=== PATIENT | female | born 1965 | race Caucasian/White ===

== ENCOUNTER → 2021-05-01 10:43 | Outpatient (CLI) | payer OTHER, SELFPAY ==
[2021-05-01 13:03] LABS: Cholesterol 159 mg/dL (200); Glucose 100 mg/dL (74-106); High Density Lipoprotein 52 mg/dL; Triglycerides 110 mg/dL; Very Low Density Lipoprotein 22 mg/dL (5-40)
== END ==
PROVIDERS: Referring Provider Psychiatry & Neurology Psychiatry; Visit Provider Psychiatry & Neurology Psychiatry
DX: E88.81 Metabolic syndrome and other insulin resistance (principal); Z79.899 Other long term (current) drug therapy
CPT/HCPCS: 36415; 80061; 82947; 83036

== ENCOUNTER 2023-01-08 21:51 | Emergency (ER) | payer OTHER, SELFPAY ==
[2023-01-08 21:52] VITALS: BP 161/66; PULSE 64; RESP 18; TEMP 36.1; O2SAT 100; BMI 40.8
--- NOTE | 2023-01-08 22:33 | ED.VIS.FALL ---
HPI HPI - Fall History of Present Illness Chief Complaint: Fall Informant: patient Occured/Mechanism Occurred: Today Mechanism/Context: Yes same level fall Pain/Injury Location: Left elbow, left arm, right shoulder, head, neck, and upper back Pain Location: head, neck, back and upper extremity Quality of Pain: Burning and Stabbing Worsened by: Movement Relieved by: Nothing Associated Symptoms Associated Symptoms: Negative for Parasthesias, Weakness, Loss of function, Inability to ambulate, Loss of consciousness or Amnesia Narrative Narrative: Patient presents after a fall that occurred earlier today. Patient states she was walking up a ramp and the ramp started to tip over. Patient states she fell backwards. Patient states she injured her left elbow, left arm, upper back, and right shoulder. Patient thinks she hit her head. Patient denies any loss of consciousness. Patient states her pain is worse with movement. Patient describes her pain as stabbing. Patient states she has burning pain in her left elbow. Patient denies any paresthesias or weakness. Patient denies any other injuries. PFSH PFSH Medical History (Updated 01/08/23 @ 23:[address] Phong Coffman DO) Anxiety Depression Home Medications bupropion HCl 300 mg 24 hr tablet, extended release 300 mg PO DAILY 01/08/23 [History Last Taken Unknown] hydrocodone-acetaminophen 5-325mg 5mg-325mg 1 tab PO Q6H PRN PRN Pain 3 days #10 TABLETS 01/08/23 [Rx Last Taken Unknown] propranolol 10 mg tablet 10 mg PO DAILY 01/08/23 [History Last Taken Unknown] quetiapine 50 mg tablet 50 mg PO QHS 01/08/23 [History Last Taken Unknown] sertraline 100 mg tablet 200 mg PO Q24H 01/08/23 [History Last Taken Unknown] Allergy/AdvReac Type Severity Reaction Status Date / Time No Known Allergies Allergy Verified 01/08/23 21:53 Surgical History (Updated 01/08/23 @ 22:[address] Phong Coffman DO) Hx of appendectomy Social History Smoking Status: Never smoker ROS ROS ED Constitutional Constitutional ED: Denies chills or fever(s) Eyes Eyes: Denies blurry vision or change in vision ENT ENT ED: Denies rhinorrhea or sore throat Cardiovascular Cardiovascular: Denies chest pain or palpitations Respiratory/Chest Respiratory/Chest: Denies cough or dyspnea Gastrointestinal Gastrointestinal: Denies nausea or vomiting Genitourinary Genitourinary ED: Denies dysuria or hematuria Musculoskeletal Musculoskeletal: Reports back pain and neck pain Integumentary Denies abscess or rash Neurologic Neurologic: Reports headache(s); Denies weakness Allergic/Immunologic Allergic/Immunologic ED: Denies mouth swelling or urticaria EXAM Physical Exam Const Vital Signs: 01/08/23 21:52 Temperature 97 F L Temperature Source Temporal Pulse Rate 64 Respiratory Rate 18 Blood Pressure 161/66 H Blood Pressure Mean 97 Pulse Ox 100 Oxygen Delivery Method Room Air Positive well nourished and well developed General Appearance ED: well developed HEENT Reports normocephalic Neck General: tenderness Chest Wall palpation of chest normal GI non-tender Palpation: soft Back/Spine Cervical Spine: cervical spine tenderness Thoracic Spine / Upper Back: thoracic spinal tenderness Extremity Extremity Narrative: There is tenderness over the left elbow and upper arm. There is tenderness over the right shoulder. Range of motion is limited in all motions of the right shoulder, left elbow, and left shoulder secondary to pain. There is no obvious deformity noted. Radial pulses are equal bilaterally. Sensation was intact to light touch in the radial, median, ulnar areas bilaterally. Strength is 5/5 in the radial, median, and ulnar areas bilaterally. Neuro oriented x3, CN's II-XII intact bilaterally, moves all extremities, no focal motor deficits and no sensory deficits noted [place] Coma Scale: document GCS findings Spontaneous Obeys Commands Oriented 15 Sensorium / Orientation: alert Motor Exam: strength 5/5 throughout MDM MDM MDM Narrative Medical decision making narrative: Differential diagnosis includes closed head injury, cervical spine fracture, cervical muscle strain, thoracic strain, shoulder dislocation, elbow fracture, and contusions. CT scan of the cervical spine will be obtained to assess for cervical spine fracture. CT scan of the brain will be obtained to assess for intracranial bleeding and head injury. X-ray of the right shoulder will be obtained to assess for fracture dislocation. X-ray of the left elbow and left humerus will be obtained to assess for fracture and dislocation. Radiography Diagnostic Testing: Clinical Impression(s) from Imaging Studies Brain CT 01/08/23 22:40 IMPRESSION: No acute intracranial abnormality. Electronically Signed: Emeterio Sexton MD at 23:25 EDT , Cervical Spine CT 01/08/23 22:40 IMPRESSION: 1. No acute fracture or subluxation. 2. Spondylosis as described with spinal and neural foraminal narrowing. Electronically Signed: Emeterio Sexton MD at 23:33 EDT Reading Location ID and State: [facility] / [place] Tel , Service support , Elbow X-Ray 01/08/23 23:10 IMPRESSION: Acute intra-articular fracture of the proximal radial head. Elbow joint effusion. Electronically Signed: Emeterio Sexton MD at 23:43 EDT Reading Location ID and State: [facility] / [place] Tel , Service support , Humerus X-Ray 01/08/23 23:10 IMPRESSION: Intact left humerus. Intra-articular fracture of the proximal radial head. Electronically Signed: Emeterio Sexton MD at 23:44 EDT , Shoulder X-Ray 01/08/23 23:10 IMPRESSION: Intact right shoulder. Electronically Signed: Emeterio Sexton MD at 23:42 EDT , X-rays of the right shoulder were obtained. There are 4 views. On my independent interpretation, there is no acute fracture or dislocation. There are some mild degenerative changes noted. Radiologist also interpreted the x-rays and agrees. X-rays of the left humerus were obtained. There are 4 views. On my independent interpretation, there is no fracture of the humerus bone. There is a radial head fracture. There is a joint effusion noted. Radiologist also interpreted the x-rays and agrees. X-rays of the left elbow were obtained. There are 3 views. On my independent interpretation, there is a fracture of the radial head. There is a joint effusion noted. There is no soft tissue swelling noted. Radiologist also interpreted the x-rays and agrees. CT scan of the cervical spine was obtained. There is no acute fracture or spondylolisthesis. There are degenerative changes noted. This was interpreted by the radiologist and was also independently reviewed by myself. CT scan of the brain was obtained. There is no acute intracranial abnormality. This was interpreted by the radiologist and was also independently reviewed by myself. Treatment and Re-Evaluation Narrative: The patient was given Belcher here. Patient was given a prescription for a short course of Belcher. Patient was given a sling. Patient was instructed to use ice to the area. Patient was instructed to follow-up with her primary care physician in 5 to 7 days. Patient understood and was agreeable with the plan. All questions were answered. Discharge Plan Triage Chief Complaint: Fall ED Provider: Phong Coffman Dx/Rx/DC Orders Clinical Impression: Acute cervical myofascial strain, Fall, Closed fracture of head of left radius Instructions: ED Elbow Fracture Prescriptions: New hydrocodone-acetaminophen [hydrocodone-acetaminophen] 5-325 mg tablet 1 tab PO Q6H PRN PRN (Reason: Pain) 3 Days Qty: 10 0RF No Action propranolol 10 mg tablet 10 mg PO DAILY Patient Comments: TAKE ONE TABLET BY MOUTH EVERY DAY sertraline 100 mg tablet 200 mg PO Q24H Patient Comments: TAKE TWO TABLETS BY MOUTH EVERY DAY quetiapine 50 mg tablet 50 mg PO QHS Patient Comments: TAKE ONE TABLET BY MOUTH EVERY DAY bupropion HCl 300 mg tablet extended release 24 hr 300 mg PO DAILY Patient Comments: TAKE ONE TABLET BY MOUTH EVERY MORNING Primary Care Provider: Care Physician,No Primary Referrals: Tal Snowden DO [Med Staff - Active Staff] - 5-7 Days Care Physician,No Primary [Primary Care Provider] - Disposition Disposition: Home, Self Care
--- NOTE | 2023-01-08 22:40 | CT_ITS ---
EXAM: CT CERVICAL SPINE WITHOUT INTRAVENOUS CONTRAST CLINICAL INDICATION: Injury/Pain TECHNIQUE: Helically acquired images were obtained of the cervical spine without intravenous contrast. 2D reformatted images were reviewed. This CT exam was performed using one or more of the following dose reduction techniques: automated exposure control, adjustment of the mA and/or kV according to patient size, and/or use of iterative reconstruction technique. COMPARISON: No relevant prior studies available. FINDINGS: VERTEBRAE: No acute fracture or subluxation. Disc space narrowing and prominent vertebral body hypertrophy noted at C4-5, C5-6 and C6-7. Prominent posterior disc osteophyte complex at C5-6 results and mild to moderate spinal stenosis. Bilateral C5-6 and C6-7 neural foraminal narrowing related to uncinate joint hypertrophy. DISCS/SPINAL CANAL/NEURAL FORAMINA: See above. SOFT TISSUES: Normal. No prevertebral soft tissue swelling. LYMPH NODES: Normal. No cervical adenopathy. LUNG APICES: Unremarkable as visualized. CT/Spine Cervical without Contras IMPRESSION: 1. No acute fracture or subluxation. 2. Spondylosis as described with spinal and neural foraminal narrowing. Electronically Signed: Emeterio Sexton MD at 23:33 EDT ,
--- NOTE | 2023-01-08 22:40 | CT_ITS ---
EXAM: CT HEAD WITHOUT INTRAVENOUS CONTRAST CLINICAL INDICATION: Injury/Pain TECHNIQUE: Multiple axial images were obtained of the head without intravenous contrast. This CT exam was performed using one or more of the following dose reduction techniques: automated exposure control, adjustment of the mA and/or kV according to patient size, and/or use of iterative reconstruction technique. COMPARISON: No relevant prior studies available. FINDINGS: BRAIN AND EXTRA-AXIAL SPACES: Normal. No intra- or extra-axial hemorrhage. No acute infarct. No intracranial mass or mass effect. There is preservation of the wang/white matter interface. Posterior fossa structures are unremarkable. Ventricles are appropriate for age. No hydrocephalus. Basal cisterns are patent. BONES/JOINTS: No suspicious lytic or blastic abnormality. SINUSES: No acute sinusitis. MASTOID AIR CELLS: Normal. Clear. CT/Brain/Head without Contrast IMPRESSION: No acute intracranial abnormality. Electronically Signed: Emeterio Sexton MD at 23:25 EDT ,
[2023-01-08] MEDS: HYDROcodone Bitartrate/Apap 5/325 Tablet PO (22:59)
--- NOTE | 2023-01-08 23:10 | RAD_ITS ---
EXAM: XR LEFT HUMERUS, 2 OR MORE VIEWS CLINICAL INDICATION: Injury/Pain TECHNIQUE: Frontal and lateral views of the left humerus. COMPARISON: No relevant prior studies available. FINDINGS: BONES/JOINTS: Humerus is intact. Fracture involving the proximal radial head is again seen. SOFT TISSUES: Normal. No soft tissue swelling or gas. No radiopaque foreign body. RAD/Humerus min 2 Views IMPRESSION: Intact left humerus. Intra-articular fracture of the proximal radial head. Electronically Signed: Emeterio Sexton MD at 23:44 EDT ,
--- NOTE | 2023-01-08 23:10 | RAD_ITS ---
EXAM: XR LEFT ELBOW COMPLETE, 3 OR MORE VIEWS CLINICAL INDICATION: Injury/Pain TECHNIQUE: Frontal, lateral and oblique views of the left elbow. COMPARISON: No relevant prior studies available. FINDINGS: BONES/JOINTS: An acute intra-articular fracture of the proximal radial head noted with 1.5 mm of displacement. No subluxation. Joint effusion displaces the anterior and posterior fat pads. SOFT TISSUES: Normal. No soft tissue swelling or gas. No radiopaque foreign body. RAD/Elbow min 3 Views IMPRESSION: Acute intra-articular fracture of the proximal radial head. Elbow joint effusion. Electronically Signed: Emeterio Sexton MD at 23:43 EDT ,
--- NOTE | 2023-01-08 23:10 | RAD_ITS ---
EXAM: XR RIGHT SHOULDER COMPLETE, 2 OR MORE VIEWS CLINICAL INDICATION: Injury/Pain TECHNIQUE: Two or more views of the right shoulder. COMPARISON: No relevant prior studies available. FINDINGS: BONES/JOINTS: No acute abnormality. SOFT TISSUES: Normal. No soft tissue swelling or gas. No radiopaque foreign body. RAD/Shoulder min 2 Views IMPRESSION: Intact right shoulder. Electronically Signed: Emeterio Sexton MD at 23:42 EDT ,
[2023-01-08 23:51] VITALS: RESP 18
== END 2023-01-09 00:19 | disposition home or self-care (01) ==
PROVIDERS: Emergency Provider Emergency Medicine; Visit Provider Emergency Medicine
DX: S16.1XXA Strain of muscle, fascia and tendon at neck level, initial encounter (principal); S52.302A Unspecified fracture of shaft of left radius, initial encounter for closed fracture; F32.A Depression, unspecified; F41.9 Anxiety disorder, unspecified; W18.30XA Fall on same level, unspecified, initial encounter; Z79.899 Other long term (current) drug therapy
CPT/HCPCS: 70450; 72125; 73030; 73060; 73080; 99283

== ENCOUNTER → 2023-02-15 | Outpatient (CLI) | payer OTHER, SELFPAY ==
--- NOTE | 2023-02-15 13:05 | MRI_ITS ---
STUDY: MRI LEFT SHOULDER REASON FOR EXAM: Female, 57 years old. Pain, rule out rotator cuff tear TECHNIQUE: Standardized fat and water weighted pulse sequences were obtained in all 3 orthogonal planes. COMPARISON: Left humerus radiographs dated 01/08/2023. FINDINGS: There is supraspinatus tendinosis with a full-thickness tear of the anterior distal supraspinatus tendon, overall measuring 8 mm in length (coronal T2 series 5 images 7-8) and 7 mm in width (sagittal T2 series 6 images 17-18). There is infraspinatus and subscapularis tendinosis. Normal teres minor tendon. There is minimal atrophy and fatty infiltration of the supraspinatus and infraspinatus muscles. Normal subscapularis muscle. Normal teres minor muscle. There is a tiny glenohumeral joint effusion with fluid communicating into the subacromial-subdeltoid bursa. Normal humeral head and visualized proximal humerus. Normal biceps labral complex. Normal intracapsular long biceps tendon. Normal labrum. Normal capsulo-ligamentous complex. Normal rotator interval. There is hypertrophic acromioclavicular arthrosis, with inferior osteophyte formation, with minimal effacement of the supraspinatus myotendinous junction. There is a Type II morphology (curved), with a neutral orientation. Normal visualized coracohumeral and coracoacromial ligaments. Normal quadrilateral space. Normal axillary space. Normal deltoid muscle. Normal trapezius muscle. MRI/Upper Ext Joint Only(Routine) IMPRESSION: Supraspinatus tendinosis with a 8 x 7 mm full-thickness tear of the anterior distal supraspinatus tendon. Infraspinatus and subscapularis tendinosis. Minimal atrophy and fatty infiltration of the supraspinatus and infraspinatus muscles. Hypertrophic acromioclavicular arthrosis, with inferior osteophyte formation, with minimal effacement of the supraspinatus myotendinous junction. Tiny glenohumeral joint effusion with fluid communicating into the subacromial-subdeltoid bursa. Electronically Signed: Juan Hawthorne MD at 14:18 EDT ,
== END | disposition home or self-care (01) ==
PROVIDERS: Referring Provider Orthopaedic Surgery Sports Medicine; Visit Provider Orthopaedic Surgery Sports Medicine
DX: M25.812 Other specified joint disorders, left shoulder (principal)
CPT/HCPCS: 73221

== ENCOUNTER → 2023-04-24 | Outpatient (CLI) | payer OTHER, SELFPAY ==
[2023-04-24 12:18] LABS: Absolute Lymphocyte Count 2.42 X10^3/uL (0.83-4.51); Absolute Neutrophil Count 4.6 X10^3/uL (2.0-7.7); Basophil# 0.04 X10^3/uL; Basophil% 0.5 % (0-1); Eosinophil# 0.29 X10^3/uL; Eosinophils% 3.7 % (0-5); Hematocrit 39.5 % (37-47); Hemoglobin 12.5 g/dL (12.0-15.0); Lymphocyte # 2.42 X10^3/ul (0.83-4.51); Lymphocyte % 30.6 % (19-41); Mean Corp Hgb Conc 31.6 g/dL (32-36); Mean Corpuscular Hgb 28.6 pg (27.0-32.0); Mean Corpuscular Volume 90.4 fL (81-99); Mean Platelet Vol. 9.2 fl (6.2-12.0); Monocyte# 0.54 X10^3/uL; Monocyte% 6.8 % (0-10); NRBC Flagged by Analyzer 0 % (0-5); Neutrophil # 4.55 X10^3/uL (2.7-7.7); Neutrophil % 57.4 % (47-70); Platelet Count 219 K/mm3 (150-450); RBC Distribution Width CV 14.2 % (11.6-14.6); RBC Distribution Width SD 46.5 fl (35.1-43.9); Red Blood Count 4.37 M/mm3 (4.2-5.4); White Blood Count 7.9 K/mm3 (4.4-11.0)
[2023-04-24 13:18] LABS: ALB/GLOB Ratio 0.9 RATIO (0.9-2.4); AST(SGOT) 17 U/L (15-37); Alanine Aminotransfer ALT/SGPT 27 U/L (13-56); Albumin, Serum 3.6 g/dL (3.2-5.0); Alkaline Phosphatase 90 U/L (45-117); Anion Gap 6 (5-15); BUN 17 mg/dL (7-18); BUN/Creat Ratio 23.1 RATIO (10-20); Calcium,Total 9.8 mg/dL (8.5-10.1); Chloride 108 mmol/L (98-107); Cholesterol 154 mg/dL (200); Creatinine, Serum 0.74 mg/dL (0.55-1.02); EST Glomerular Filtration Rate 86 mL/min (>60); Est Glom Filt Rate - Afr Amer 104 mL/min (>60); Glucose 113 mg/dL (74-106); High Density Lipoprotein 55 mg/dL; Potassium 4.1 mmol/L (3.5-5.1); Protein, Total 7.6 g/dL (6.4-8.2); Sodium Level 141 mmol/L (136-145); Triglycerides 123 mg/dL; Very Low Density Lipoprotein 25 mg/dL (5-40)
[2023-04-24 15:21] LABS: Hemoglobin A1c 6.2 % (3.8-5.6)
== END | disposition home or self-care (01) ==
LOC: BIMLAB 10:54
PROVIDERS: Referring Provider Physician Assistant; Visit Provider Physician Assistant
DX: Z00.00 Encounter for general adult medical examination without abnormal findings (principal); R73.03 Prediabetes
CPT/HCPCS: 36415; 80053; 80061; 83036; 85025

== ENCOUNTER 2023-05-07 08:00 | Day surgery (SDC) | payer SELFPAY, OTHER ==
[2023-05-07] VITALS (7 sets, daily range): BP systolic 113–135; BP diastolic 48–68; PULSE 51–95; RESP 12–16; TEMP 36–36.1; O2SAT 72–100; BMI 40.4
[2023-05-07] MEDS: Lactated Ringers 1,000 ML 15 ML IV (08:37)
--- NOTE | 2023-05-07 10:07 | HP.PCM_ITS ---
HPI - General HPI Narrative RYAN PEDRAZA, is a 57 F who presents for left shoulder arthroscopy, subacromial decompression rotator cuff repair. no changes to h and p. ok to proceed. Discussed post op. Left shoulder marked. Plan for block. RAB and narcotic counselling. No further concerns. MR#: [id number] Acct: [id number] Name: RYAN PEDRAZA Rep #: [id number] : 1965 Provider: Dr. Vijay Black MD Age/Sex: 57/F [place] [facility] [place] Status: Signed Intake Vital Signs 01/08/2321:52 Height 5 ft 9 in Weight: 277 lb BMI 40.8 BP 161/66 H Respiration 18 Pulse 64 Temp 97 F L Temp Source Temporal Pulse Oximetry (%) 100 Intake Visit Reasons: LEFT ELBOW Is patient in pain?: Yes Allergies No Known Allergies Allergy (Verified 02/21/23 10:32) Medications bupropion HCl 300 mg 24 hr tablet, extended release 300 mg PO DAILY 01/08/23 [History Confirmed 03/21/23] propranolol 10 mg tablet 10 mg PO DAILY 01/08/23 [History Confirmed 03/21/23] quetiapine 50 mg tablet 50 mg PO QHS 01/08/23 [History Confirmed 03/21/23] sertraline 100 mg tablet 200 mg PO Q24H 01/08/23 [History Confirmed 03/21/23] calcium carbonate 500 mg calcium (1,250 mg) chewable tablet (Calcium 500) 500 mg PO DAILY 01/16/23 [History Confirmed 03/21/23] lactobacillus combo no.11 15 billion cell sprinkle capsule (Probiotic) 1 cap PO DAILY 01/16/23 [History Confirmed 03/21/23] omeprazole 20 mg capsule,delayed release 20 mg PO DAILY 01/16/23 [History Confirmed 03/21/23] PFSH Medical History Anxiety Depression Impingement of left shoulder Left rotator cuff tear Surgical History Hx of appendectomy Social History household members: spouse Smoking Status: Never smoker alcohol intake: never HPI LEFT ELBOW Details: This documentation accurately reflects the service provided and the decisions made by me, Dr. Vijay Black MD 03/21/23 1022. Part of today?s visit was documented by [ ], acting as scribe. RYAN PEDRAZA is a 57 year old F here today for 4 wks FU L shoulder small rotator cuff tear. Patient is not interested in cortisone injections. The patient has been doing physical therapy for the last 4-week only minor amounts of improvement still having anterior lateral based shoulder pain worse with over head lifting very hard to do laundry. The patient is here with her . Ortho Exam General General: Yes no acute distress Neurologic: Yes alert and Yes oriented x3 Psychologic: Yes reasonable and appropriate Left Shoulder Skin/Wound: Yes CDI, No ecchymosis, No erythema and No swelling Testing: Yes Hawkin's, Yes Neer's, No Speed's, No TTP Biceps, No TTP AC Joint, No Drop Arm, Yes AROM-External Rotation at side 0-60, Yes empty can, No Chester, No scapular winging and Yes belly press normal SHOULDER: normal motor and sens to axillary N, MRU and AIN/PIN. Hand warm well perfused normal radial pulse strength fe 4+, er 4+ active fe 150, passive 165, er 45. Coding Level of Care Code Off vis,est,level 4 Diagnoses Left rotator cuff tear M75.102 Impingement of left shoulder M25.812 Assessment and Plan Assessment and Plan (1) Left rotator cuff tear: Status: Acute (2) Impingement of left shoulder: Status: Acute Plan: RYAN PEDRAZA is a 57 year old F here today for 4 wks FU L shoulder small rotator cuff tear. Patient had minimal improvement with physical therapy does not want to try cortisone injection or other forms of nonoperative management although I spent extensive time counseling the patient and their significant other on these things they can try. The patient wishes to go ahead with shoulder surgery. In my hands that would be in the form of left shoulder arthroscopy, subacromial decompression rotator cuff repair. The patient wishes to proceed with that I discussed the diagnosis prognosis as well as aftercare after surgery 2 weeks in a sling 3 months of physical therapy before going back to any sort of significant heavy lifting. The patient understands wishes to proceed and I will also get a preoperative clearance as the patient has not seen her family doctor in quite some time and states that they are prediabetic - risk factor increases infection and other risks / complications like healing. They understood no further questions or concerns and also I have asked Dr. Burrell spine surgeon to evaluate the patient's neck as apparently they had C-spine MRI in the past and complaining about neck pain today. Pros and cons risks and benefits were discussed with the patient including but not limited to infection, pain, stiffness, bleeding, damage to surrounding structures, neurovascular injury, recurrence or retear, failure or wear of hardware or fixation, instability, fracture, deep vein thrombosis and pulmonary embolism, anesthetic risks, , patient dissatisfaction, need for further surgery and other risks. Patient understood and wished to proceed with surgery, and signed the informed consent documentation. [facility] Medical History (Updated 04/30/23 @ 10:14 by Marybel Barker) Anemia Anxiety Back problem Bone fracture Carpal tunnel syndrome Chronic bronchiolitis Depression Diabetes Head ache Heartburn Hives Hormone deficiency Impingement of left shoulder Left rotator cuff tear Seasonal allergies Vision problems Wears glasses Home Medications bupropion HCl 300 mg 24 hr tablet, extended release 300 mg PO DAILY 01/08/23 [History Last Taken Unknown] propranolol 10 mg tablet 10 mg PO DAILY 01/08/23 [History Last Taken 05/07/23] quetiapine 50 mg tablet 50 mg PO QHS 01/08/23 [History Last Taken Unknown] sertraline 100 mg tablet 200 mg PO Q24H 01/08/23 [History Last Taken Unknown] calcium carbonate 500 mg calcium (1,250 mg) chewable tablet (Calcium 500) 500 mg PO DAILY 01/16/23 [History Last Taken Unknown] brain vitality 2 tab PO BID 04/24/23 [History Last Taken Unknown] curalin 1 tab PO DAILY 04/24/23 [History Last Taken Unknown] lysene 1 tab PO BID 04/24/23 [History Last Taken Unknown] nexalin 1 tab PO QODAY 04/24/23 [History Last Taken Unknown] Allergy/AdvReac Type Severity Reaction Status Date / Time No Known Allergies Allergy Verified 05/07/23 08:30 Family History (Updated 04/24/23 @ 09:17 by Aleksandra Rose MA) Mother Anxiety Depression Father Cancer melanoma Diabetes Surgical History (Updated 04/24/23 @ 09:15 by Aleksandra Rose MA) H/O laparoscopy History of adenoidectomy Hx of appendectomy Hx of tonsillectomy Social History (Updated 04/24/23 @ 09:16 by Aleksandra Rose MA) household members: spouse Smoking Status: Never smoker alcohol intake: never substance use type: does not use Vital Signs Vital Signs Vital Signs: 05/07/23 08:32 05/07/23 08:32 Temperature 96.9 F L Temperature Source Temporal Pulse Rate 54 L Respiratory Rate 16 Respiratory Pattern Normal Blood Pressure 135/66 H Blood Pressure Mean 89 Blood Pressure Source Monitor Blood Pressure Position Semi-Fowlers Blood Pressure Location Left Arm Pulse Ox 98 Oxygen Delivery Method Room Air Weight Weight: 281 lb 12.012 oz Body Mass Index (BMI) 40.4
[2023-05-07] MEDS: Cefazolin 3 GM in 0.9% Normal Saline (100mL Bag) 100 ML IV (10:16)
[2023-05-07] MEDS: Epinephrine (1 mg/ml) 1 MG/ML VIAL (10:54)
--- NOTE | 2023-05-07 11:53 | PCM.OPRPT ---
Problems Associated Problem List Diagnoses (1) Impingement of left shoulder: (2) Left rotator cuff tear: Report of Operation Date of Procedure: 05/07/23 Pre-Operative Diagnosis: Left shoulder rotator cuff tear and impingement syndrome Post-Operative Diagnosis: Same Surgery/Procedure Performed:: Left shoulder arthroscopy subacromial decompression rotator cuff repair Surgeon: Vijay Black Type of Anesthesia: Block,Regional and General Anesthesiologist: Phong Alva Estimated Blood Loss (mL): 50 Description of Procedure: Patient brought to the operating room theater. Placed supine on the table. General anesthesia induced. 3 g IV Ancef administered prior to the start of the case. Patient transferred left side up lateral decubitus all bony prominences padded SCDs on the leg beanbag positioner and axillary roll. Upper extremity prepped and draped in the usual sterile fashion with chlorhexidine-based prep solution allowing over 3 minutes drying time prior to draping. 45 degrees of abduction with 10 pounds of inline traction set up was used. Preoperative timeout performed to confirm the site patient and the surgery. Began by inserting the arthroscope into the intra-articular portion of the shoulder. Did a diagnostic arthroscopy. Made anterior portal through rotator interval. Slight fraying on labrum. Cartilage on the glenoid and humeral head appeared normal, slight grade 1 changes both sides. Subscapularis normal. Biceps tendinosis and slight synovitis but no tears. No loose bodies. Axillary recess was normal. There is an obvious full-thickness partial width at anterior margin tear of the supraspinatus. Rest of tendon normal. Next put arthroscope into subacromial space. I did a subacromial decompression for flat margins using a corey instrument. Moderate synovitis. I assessed the mobility of the tear. This is mobile in all planes. Used 7x7mm cannulas for 2 accessory portals. I also cleared away any remaining soft tissue. Used power pick and shaver to stimulate healing at the repair site on greater tuberosity. The tear was about 1 cm x 1 cm crescent shaped tear with delamination of the anterior leaflet. I used the Arthrex fiber tape suture in an inverted horizontal mattress fashion to aid with [id number] tension as well as passed the limb of the anterior suture through both the leaflets of the delaminated portion. In addition I was able to capture the delaminated portion both layers with a fiber link suture that I placed in the middle of the inverted horizontal mattress. I then assessed where to place my anchor used the tap down to the second line and all 3 suture limbs into an Arthrex bio composite 4.75 mm swivel lock anchor and placed this at the lateral margin of the tuberosity getting a good repair. Sutures were cut short and stay sutures removed. Arthroscopic pictures taken and saved onto the system repair was solid. Case was terminated arthroscopy pictures taken and saved throughout the case onto the system. Wounds thoroughly irrigated. Portals closed with 3-0 Monocryl suture. Skin cleaned with wet dry dressing 30 cc of quarter percent bupivacaine. Steri-Strips Adaptic 4 x 4 gauze ABD dressing with cloth tape and a sling for the upper extremity. Patient woken up from a general anesthetic transferred off the operating table and taken to postanesthetic care unit in stable condition. All sponge needle instrument counts were correct. cpt 82904 Complications none Admit VTE Documentation VTE Present on Admission: No VTE Mechan Device Prophylaxis: SCD's VTE Pharm Prophylaxis ordered?: No Reason prophylaxis not ordered:: Treatment Not Indicated Procedures Musculoskeletal 20xxx-29xxx: Other Procedure See Report
--- NOTE | 2023-05-07 12:00 | EX.PCM.DISCH ---
Discharge Instructions Diet Discharge Diet: No restrictions Activity Ice area for (Minutes): 10 Lifting Restrictions: pendulums only 4x day and hand/wrist/elbow rom 4x/day Dressing / Incision Call your doctor if your incision/area has: Continuous Slow Oozing, Sudden Increased Bleeding, Increased Pain/ Swelling, Increased Redness, Foul Smelling Discharge and Swelling at the incision site Remove Dressing in: leave in place till F/U Follow Up Care Please Follow Up With: Vijay Black MD When: 2 days Test Results: Test results from this visit will be discussed in further detail at your follow-up appointment, if applicable. Discharge Plan Admission Attending Provider: Vijay Black Primary Care Provider: Saturnino Hatch Instructions Patient Instructions: After Shoulder Arthroscopy Discharge Orders/Prescriptions Prescriptions: New oxycodone-acetaminophen [Percocet] 5-325 mg tablet 1 tab PO Q4H MDD 6 PRN (Reason: pain) 5 Days Qty: 30 0RF No Action calcium carbonate [Calcium 500] 500 mg calcium (1,250 mg) tablet,chewable 500 mg PO DAILY curalin 1 tab PO DAILY brain vitality 2 tab PO BID nexalin 1 tab PO QODAY lysene 1 tab PO BID propranolol 10 mg tablet 10 mg PO DAILY Patient Comments: TAKE ONE TABLET BY MOUTH EVERY DAY sertraline 100 mg tablet 200 mg PO Q24H Patient Comments: TAKE TWO TABLETS BY MOUTH EVERY DAY quetiapine 50 mg tablet 50 mg PO QHS Patient Comments: TAKE ONE TABLET BY MOUTH EVERY DAY bupropion HCl 300 mg tablet extended release 24 hr 300 mg PO DAILY Patient Comments: TAKE ONE TABLET BY MOUTH EVERY MORNING Referrals / Follow Up: Vijay Black MD [Med Staff - Active Staff] - Saturnino Hatch PA [Primary Care Provider] - Disposition Disposition (needs filled in before D/C Order can be placed): Home, Self Care
[2023-05-07] MEDS: Oxycodone/Apap 5/325 Tablet PO (13:01)
== END 2023-05-07 15:42 | disposition home or self-care (01) ==
LOC: SDC 08:04 → AC 08:06
PROVIDERS: PCP Physician Assistant; Referring Provider Orthopaedic Surgery Sports Medicine; Visit Provider Orthopaedic Surgery Sports Medicine
PROC: (CPT 29805; principal; 2023-05-07 09:50)
DX: S46.012A Strain of muscle(s) and tendon(s) of the rotator cuff of left shoulder, initial encounter (principal); E11.9 Type 2 diabetes mellitus without complications; M75.42 Impingement syndrome of left shoulder; F32.A Depression, unspecified; F41.9 Anxiety disorder, unspecified; E66.9 Obesity, unspecified; Z79.899 Other long term (current) drug therapy; X58.XXXA Exposure to other specified factors, initial encounter; Z68.36 Body mass index [BMI] 36.0-36.9, adult
CPT/HCPCS: 29827; 64415; 01630; 93005; J7120; A4216; J2405

== ENCOUNTER → 2023-07-04 | Outpatient (CLI) | payer OTHER, SELFPAY ==
[2023-07-04 15:05] LABS: Absolute Lymphocyte Count 2.58 X10^3/uL (0.83-4.51); Absolute Neutrophil Count 4.4 X10^3/uL (2.0-7.7); Basophil# 0.04 X10^3/uL; Basophil% 0.5 % (0-1); Hematocrit 39.1 % (37-47); Hemoglobin 12.7 g/dL (12.0-15.0); Lymphocyte # 2.58 X10^3/ul (0.83-4.51); Lymphocyte % 32.3 % (19-41); Mean Corp Hgb Conc 32.5 g/dL (32-36); Mean Corpuscular Hgb 28.9 pg (27.0-32.0); Mean Corpuscular Volume 88.9 fL (81-99); Mean Platelet Vol. 8.7 fl (6.2-12.0); Monocyte# 0.49 X10^3/uL; Monocyte% 6.1 % (0-10); NRBC Flagged by Analyzer 0 % (0-5); Neutrophil # 4.44 X10^3/uL (2.7-7.7); Neutrophil % 55.7 % (47-70); Platelet Count 225 K/mm3 (150-450); RBC Distribution Width CV 13.6 % (11.6-14.6); RBC Distribution Width SD 44.2 fl (35.1-43.9)
[2023-07-04 15:31] LABS: ALB/GLOB Ratio 0.9 RATIO (0.9-2.4); AST(SGOT) 15 U/L (15-37); Alanine Aminotransfer ALT/SGPT 21 U/L (13-56); Albumin, Serum 3.7 g/dL (3.2-5.0); Alkaline Phosphatase 105 U/L (45-117); Anion Gap 1 (5-15); BUN 16 mg/dL (7-18); BUN/Creat Ratio 18.8 RATIO (10-20); Calcium,Total 10.2 mg/dL (8.5-10.1); Chloride 107 mmol/L (98-107); Creatinine, Serum 0.85 mg/dL (0.55-1.02); EST Glomerular Filtration Rate 73 mL/min (>60); Est Glom Filt Rate - Afr Amer 88 mL/min (>60); Globulin 4.2 g/dL (2.2-4.2); Glucose 188 mg/dL (74-106); Potassium 3.7 mmol/L (3.5-5.1); Protein, Total 7.9 g/dL (6.4-8.2); Sodium Level 137 mmol/L (136-145)
[2023-07-04 16:53] LABS: Hemoglobin A1c 6.6 % (3.8-5.6)
--- OUTSIDE RECORDS SUMMARY | 2023-07-04 18:02 | XMS RPT_ITS | CCD ---
Author Name Unknown Address [address] [place] [address] Organization [facility] Care Team Providers Care Demand Equipment Repairer Name Role Phone APRYL TANNER MD Admitting Unavailable APRYL TANNER MD Primary Care Unavailable APRYL TANNER MD Attending Unavailable APRYL TANNER MD Admitting Unavailable APRYL TANNER MD Primary Care Unavailable APRYL TANNER MD Attending Unavailable MALCOM RESTREPO Primary Care Unavailable MALCOM RESTREPO Attending Unavailable MALCOM RESTREPO Admitting Unavailable Problems Problem Classification Problem Date Documented Da te Episodic/Chronic Fracture of upper limb (3 sources) Displaced fracture of head of left radius, initial encounter for closed fracture; Translations: [Displaced fracture of head of left radius, initial encounter for closed fracture] Onset: 01-24-2023 Episodic Other non-traumatic joint disorders (1 source) Other specified joint disorders, left shoulder; Translations: [Other specified joint disorders, left shoulder] Onset: 01-24-2023 Episodic Results Test Name Value Interpretation Reference Range Facil ity Encounters Encounter Date Encounter Type Care Provider Facility Start: 06-05-2023 ambulatory APRYL VARGAS [facility] Start: 04-26-2023 End: 04-26-2023 ambulatory MALCOM RESTREPO [facility] Start: 01-24-2023 End: 03-29-2023 ambulatory APRYL VARGAS [facility] Payers Date Payer Category Payer Unknown [id number] 1965 Unknown [id number] 1965 Unknown [id number] Unknown 132-1 Summary Purpose Family History No Family History Records Found Advance Directives No Advanced Directives Records Found Additional Source Comments INFORMATION SOURCE (unrecogn ized section and content) FOR RECORDS PERTAINING TO PATIENTS WHO ARE OR HAVE BEEN ENROLLED IN A CHEMICAL DEPENDENCY/SUBSTANCEABUSE PROGRAM, SOME INFORMATION MAY BE OMITTED. This clinical summary was aggregated from multiple sources. Caution should be exercised in using it in the provision of clinical care. This summary normalizes information from multiple sources, and as a consequence, information in this document may materially change the coding, format and clinical context of patient data. In addition, data may be omitted in some cases. CLINICAL DECISIONS SHOULD BE BASED ON THE PRIMARY CLINICAL RECORDS. [facility]. provides no warranty or guarantee of the accuracy or completeness of information in this document.
== END | disposition home or self-care (01) ==
LOC: BIMLAB 14:21
PROVIDERS: PCP Physician Assistant; Referring Provider Physician Assistant; Visit Provider Physician Assistant
DX: Z01.818 Encounter for other preprocedural examination (principal); R73.09 Other abnormal glucose
CPT/HCPCS: 36415; 80053; 83036; 85025

== ENCOUNTER 2023-07-16 05:29 | Inpatient (IN) | payer SELFPAY, OTHER ==
[2023-07-08 10:50] LABS: Magnesium 2.3 mg/dL (1.6-2.6)
[2023-07-08 11:33] LABS: HIV - WCH Non-Reactive (Nonreactive); Hepatitis B Surface Antibody Non-Reactive; Hepatitis C Antibody Non-Reactive (Nonreactive)
[2023-07-09 05:07] LABS: Hepatitis A AB, Total Negative (Negative)
[2023-07-16] VITALS (16 sets, daily range): BP systolic 123–162; BP diastolic 60–74; PULSE 57–83; RESP 12–18; TEMP 36.1–37.3; O2SAT 91–97; BMI 40.3
--- OUTSIDE RECORDS SUMMARY | 2023-07-16 05:33 | XMS RPT_ITS | CCD ---
Author Name Unknown Address [address] [place] [address] Organization [facility] Care Team Providers Care Chef Name Role Phone PARYL TANNER MD Admitting Unavailable APRYL TANNER MD [...] Provider Facility Start: 06-05-2023 ambulatory APRYL VARGAS [facility] Start: 04-26-2023 End: 04-26-2023 ambulatory MALCOM RESTREPO [facility] Start: 01-24-2023 End: 03-29-2023 ambulatory APRYL VARGAS [facility] Payers Date Payer Category Payer Unknown [id number] 1965 Unknown [id number] 1965 Unknown [id number] Unknown 132-1 Summary Purpose Family History No [...] BE BASED ON THE PRIMARY CLINICAL RECORDS. [facility]. provides no warranty or guarantee of the accuracy or completeness of information in this document.
[2023-07-16] MEDS: Lactated Ringers 1,000 ML 15 ML IV (06:25)
[2023-07-16] MEDS: Magnesium 1 GM over 15 mins IV (06:25)
--- NOTE | 2023-07-16 06:30 | RAD_ITS ---
STUDY: Cervical spine REASON FOR EXAM: Female, 58 years old. ANTERIOR FUSION C3-4,C4-5,C5-6 C6-7 TECHNIQUE: Intraoperative views of the cervical spine were obtained . COMPARISON: 03/21/2023 FINDINGS: 8 views of the cervical spine were obtained intraoperatively on a C-arm. The examination was performed for documentation only and not for diagnostic purposes. The fluoroscopy time was 16.3 seconds. Radiation dose: 4.24 mGy. RAD/Cerv Spine 4 or 5 Views IMPRESSION: Intraoperative exam as described above. Electronically Signed: Stephan Clark MD at 11:36 EST ,
[2023-07-16] MEDS: Acetaminophen 500 MG Tablet 1000 MG PO ×3 (06:40→22:00)
[2023-07-16] MEDS: dexAMETHasone 10 MG/ML Vial 8 MG IV (06:47)
[2023-07-16 07:00] LABS: Bedside Glucose 98 mg/dL (74-106)
--- NOTE | 2023-07-16 07:27 | PCM.HP.BLA ---
History and Physical Date of Admission: 07/16/23 MR#: [id number] Acct: [id number] Name: DAYA PEDRAZA Rep #: [id number] : 1965 Provider: Dr. Gibson Burrell MD Age/Sex: 58/F Location: [facility] Status: Signed Intake Vital Signs 05/08/2309:57 05/24/2410:08 06/19/2407:40 Height 5 ft 10 in 5 ft 10 in 5 ft 10 in Weight: 283 lb BMI 40.6 BP 138/82 H Blood Pressure Location Lt brachial Position Sitting Respiration 16 Pulse 56 L Pulse Source Monitor Temp 97.5 F L Temp Source Temporal Pulse Oximetry (%) 98 Oxygen Delivery Method room air Intake Visit Reasons: LUMBAR SPINE Chief Complaint: surgical clearance Allergies No Known Allergies Allergy (Verified 06/19/23 13:05) PFS Medical History Anemia Anxiety Back problem Bone fracture Carpal tunnel syndrome Chronic bronchiolitis Depression Diabetes Head ache Heartburn Hives Hormone deficiency Impingement of left shoulder Left rotator cuff tear Major depression in partial remission Seasonal allergies Vision problems Wears glasses Surgical History H/O laparoscopy History of adenoidectomy Hx of appendectomy Hx of tonsillectomy Family History Mother Anxiety DepressionFather Cancer melanoma Diabetes Social History household members: spouse Smoking Status: Never smoker alcohol intake: never substance use type: does not use HPI LUMBAR SPINE Details: This documentation accurately reflects the service provided and the decisions made by me, Dr. Gibson Burrell MD 06/19/23 1308. Part of today?s visit was documented by Leslie SUTTON, acting as scribe. DAYA PEDRAZA is a 58 year old F here today for MRI review of her cervical spine. She denies any changes. Daya is now 6 weeks status post left shoulder surgery. She is here to discuss cervical spine surgery which is scheduled in July. She continues to have difficulty with neck pain, hand dexterity and numbness issues, and worsening balance. She reports that she is has had worsening of stumbling and wobbliness in her gait. She denies any falls since last seen by me. She denies needing any ambulatory aid. She has been dropping objects from her hand and has difficulty with fine function. Today she also notices painful restriction of right shoulder movement. Following is a previous history. 05/10/23: DAYA PEDRAZA is a 57 year old F here today for Cervical spine MRI review. She complains of neck pain that radiates down into her right arm and causes numbness and tingling. She reports this is worse at night and often wakes her up from sleep. She had shoulder surgery 2 days ago and reports the sling she has to wear is exacerbating her neck pain. She would like to discuss MRI results and next steps. Daya saw me on 03/21/2023 at which time I had ordered a new MRI of her cervical spine. She is here to review the images. She continues to have neck pain that radiates down her right arm. She underwent left shoulder cuff repair 2 days ago and is in the sling in the left upper extremity. She continues to have difficulty with dropping objects from both hands. She also notices worsening balance with stumbling and feeling like she might fall if she closes her eyes. She denies any falls since last seen by me. She is awaiting rehab for her left shoulder surgery. She says that she is prediabetic. Her history from her 03/21/2023 visit is as follows. Evaluation of her neck pain and left worse than right upper extremity radiating pain and numbness. She mentioned that she has had neck issues for many years and also obtained MRI of cervical spine in 2014 at an outside institution. She mentions that this has been getting worse with time. She saw Dr. Black for left shoulder rotator cuff pathology and is contemplating left shoulder surgery. She mentioned that she has significant numbness that goes along the radial forearm and radial digits of the hand. She often wakes up in the middle of the night because of hand numbness and has to shake off her hands to obtain relief. She has not been formally diagnosed with carpal tunnel syndrome or has not had any treatment for these.She has occasional difficulty with balance and also drops things from both hands. She is right-hand dominant. Ortho Exam General General: Yes no acute distress Neurologic: Yes alert and Yes oriented x3 Spine SPINE TESTING CERVICAL THORACIC LUMBAR Musculoskeletal Strength 0=absent - 5=normal Details: Examination of the neck shows midline and left paraspinal tenderness in lower neck region. Neurologic evaluation of upper extremity shows 5 out of 5 power in all muscles normal sensations in all dermatomes. Jonathan's negative. There is no hyperreflexia. Left upper extremity was not evaluated about the wrist due to the sling. Coding Level of Care Code Off vis,est,level 3 Diagnoses Cervical myelopathy G95.9 Time Spent (min) 40 Assessment and Plan Assessment and Plan (1) Cervical myelopathy: Status: Acute Plan I again reviewed in detail her x-rays and MRI. Her MRI was done 2 weeks ago. This shows severe stenosis and cord compression from C3-7. No obvious cord signal changes seen. No dynamic instability on x-rays done previously. I again explained to her the MRI findings in detail. She has severe cord compression which explains her symptoms of myelopathy namely hand numbness and dexterity issues and difficulties with balance. I explained to her the natural history of cervical myelopathy which is typically that of progression. While she is not hyperreflexic, her symptoms are suggestive of mild myelopathy. Recommendation for mild myelopathy is cervical spinal cord surgical decompression to stop the progression of myelopathy. I recommended C3-7 ACDF in hopes of halting the progression of myelopathy. All risk benefits and alternatives were discussed. The risks include but are not limited to infection, bleeding, injury to nerves and vessels, spinal cord injury, nerve root injury, C5 palsy, pseudoarthrosis, dysphagia, dysphonia, hardware failure, need for further surgeries, adjacent segment degeneration, DVT, pulmonary embolism, pneumonia, atelectasis, cardiopulmonary event. She understands and wishes to proceed with surgery. Consent was signed.
[2023-07-16] MEDS: Cefazolin 2 GM in 0.9% Normal Saline (100mL Bag) 100 ML IV (07:30)
[2023-07-16 09:49] LABS: Bedside Glucose 139 mg/dL (74-106)
--- NOTE | 2023-07-16 11:35 | OP.PCM_ITS ---
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 Anesthesia: Gen. endotracheal Estimated blood loss: 50 mL Complications: None Instrumentation used: Medtronic Lonerock Elite plate, LASR corticocancellous block Indications: The patient is a pleasant 58-year-old lady who presented with neck pain, bilateral upper extremity radiation, progressive difficulty with balance. MRI showed C3-7 disc degeneration with stenosis with cord compression. In order to halt the progression of myelopathy, the patient requested surgical treatment. All risks and benefits of the procedure were explained to the patient. The risks include but are not limited to infection, bleeding, injury to nerves and vessels, vertebral artery injury, spinal cord injury, paralysis, vocal cord paralysis, injury to esophagus, pseudoarthrosis, need for further procedures, adjacent segment degeneration. Procedure: The patient was identified in the preoperative suite using unique patient identifiers. Skin was marked consent was taken and all questions were answered. The patient was then brought back to the operative room and a timeout was performed. General endotracheal anesthesia was given. Intraoperative neuro monitoring leads were applied. The patient was carefully positioned supine on a regular OR table. A lateral view with a C-arm was done to identify the level and to define the incision. The anterior neck was then prepped and draped in the usual fashion. A final timeout was then performed. A oblique longitudinal skin incision was taken to the left of midline. Subcutaneous tissue was then divided with Bovie. Platysma was identified and cut along the incision with scissors. The fascial interval between the sternocleidomastoid and the larynx was developed. Omohyoid was identified and retracted. The esophagus with the larynx was retracted medially to reach the prevertebral fascia. Marker x-ray was performed with bent spinal needle and disc space and levels were confirmed. Longus coli muscle was elevated on both sides at and above and below C3-7 discs. Self-retaining retractors were then placed. A long handle knife was then used to perform annulotomy at C4-5. Disc fragments were removed with the pituitary. [employer] pins were placed in C4 and C5 for disc distraction. Curettes and bur was utilized to remove cartilage from the endplates. Discectomy was performed laterally up to the uncovertebral joints. Posterior osteophytes were thinned down with the bur and adequate decompression in the central and foraminal areas were performed and PLL was thinned out. Once the disc space was prepared, trials of various sizes were utilized. Thorough irrigation was given. 6 mm LASR cortical cancellous allograft bone large footprint was then fashioned in such a way that concavities were burred out inferiorly and superiorly and half cc of DBX (demineralized bone matrix) was squeezed into the cancellous portion. The graft was then inserted into the C4-5 disc space. The retractors were then repositioned and the procedure was repeated for C3-4, C5-6, C6-7 discs with complete discectomy. Graft sizes were 6 mm at with large footprint at C5-6 and C6-7, and 7 mm with large footprint at C3-4. The grafts were found to be in good apposition with good pullout s trength. A 77 mm Medtronic Lonerock Elite plate was then fixed to C3-7 with 16 mm screws. A lateral x-ray was then taken to check the length of the screws. Both AP and lateral x-rays showed good positioning of plate and screws. The locking mechanism over the screw heads was then turned. Thorough irrigation was again given. Hemostasis was achieved. A channel drain was then inserted. Closure was done with 3-0 Vicryl for the platysma and subcutaneous tissue layers and 4-0 Monocryl for the skin. Closure was done around the drain. Steri-Strips were applied and dressing was done with 4 x 4 gauze and Tegaderm. A cervical collar was then applied. The patient was then woken up from anesthesia extubated and taken to PACU in stable condition. From here, the patient will be transitioned to the floor. Intraoperative neuro monitoring was performed throughout this procedure. Motor evoked potentials were run periodically. All potentials remained at baseline throughout the procedure. I was present for the entire surgery and performed the surgery myself. Admit VTE Documentation VTE Mechan Device Prophylaxis: SCD's Procedures Musculoskeletal 20xxx-29xxx: Other Procedure See Report
[2023-07-16] MEDS: dexAMETHasone 4 MG/ML Vial IV ×2 (12:43→18:39)
[2023-07-16] MEDS: Ketorolac 15 MG/ML Vial IV ×2 (12:46→22:01)
[2023-07-16 12:55] LABS: Bedside Glucose 177 mg/dL (74-106)
--- OUTSIDE RECORDS SUMMARY | 2023-07-16 13:37 | XMS RPT_ITS | CCD ---
Author Name Unknown Address [address] [place] [address] Organization [facility] Care Team Providers Care Cementer Hand Name Role Phone APRYL TANNER MD Admitting [...] Provider Facility Start: 06-05-2023 ambulatory APRYL VARGAS [facility] Start: 04-26-2023 End: 04-26-2023 ambulatory MALCOM RESTREPO [facility] Start: 01-24-2023 End: 03-29-2023 ambulatory APRYL VARGAS [facility] Payers Date Payer Category Payer Unknown [id number] 1965 Unknown [id number] 1965 Unknown [id number] Unknown 132-1 Summary Purpose Family History No [...] BE BASED ON THE PRIMARY CLINICAL RECORDS. [facility]. provides no warranty or guarantee of the accuracy or completeness of information in this document.
[2023-07-16] MEDS: Lactated Ringers 1,000 ML 100 ML IV (13:39)
[2023-07-16] MEDS: Methocarbamol 500 MG Tablet 1000 MG PO ×3 (15:32→22:00)
[2023-07-16] MEDS: Ensure Surgery 237 ML LIQUID PO (17:40)
[2023-07-16] MEDS: Cefazolin 3 GM in 0.9% Normal Saline (100mL Bag) 100 ML IV (18:39)
--- NOTE | 2023-07-16 19:49 | PN.HOSP_ITS ---
Reason for Visit Reason for Visit: Neck pain Subjective Subjective Patient is a 58-year-old [place] female who presented electively to [facility] on 07/16/2023 for an anterior cervical discectomy and fusion with plate instrumentation from C3-C7 for disc degeneration, stenosis, progressive myelopathy. She has a past medical history of diabetes, anxiety, GERD, and morbid obesity. We have been consulted postoperatively for assistance with medical management after surgery. I evaluated her on the medical floor after she was admitted from PACU. Patient states she ate without any difficulty. No significant pain with swallowing. Pain is fairly well-controlled. She is complaining of some tingling and a sleepy sensation in her left hand but the rest of the arm feels okay at this time. She states this was not there prior to surgery. Objective Data Objective Data Vital Signs: Vital Signs Temp Pulse Resp BP Pulse Ox O2 Del Method O2 Flow Rate 98.0 F 83 16 134/61 H 92 Nasal Cannula 2 07/16/23 18:46 07/16/23 18:46 07/16/23 18:46 07/16/23 18:46 07/16/23 18:46 07/16/23 19:49 07/16/23 19:49 Oxygen Flow Rate (L/min) 2 Oxygen Delivery Method Nasal Cannula Weight: 127.4 kg Body Mass Index (BMI) 40.3 Intake & Output: Intake and Output for Last 24 Hours 07/14/23 07/15/23 07/16/23 23:59 23:59 23:59 Intake Total 1212 / 1212 Balance 1212 / 1212 Lab / Micro Data Labs: Laboratory Results - last 24 hr 07/16/23 06:30: POC Glucose 98 07/16/23 09:31: POC Glucose 139 H 07/16/23 12:36: POC Glucose 177 H Micro: Microbiology 07/08/23 10:14 Swab (Method) Nasal Screen MRSA/MSSA - Final Radiography Diagnostic Testing: Radiology Impression Cervical Spine X-Ray 07/16/23 06:30 IMPRESSION: Intraoperative exam as described above. Electronically Signed: Stephan Clark MD at 11:36 EST , Physical Exam Const alert, oriented x3, no apparent distress and well nourished; Negative for average body habitus or healthy appearing Constitutional Narrative: Morbidly obese, [place], white, female, sitting up in bed, at bedside, nursing at bedside, currently feels comfortable, watching television, c-collar in place HEENT head/scalp atraumatic and moist oral mucous membranes Head and Scalp: normocephalic Resp normal respiratory effort, no retractions, no use of accessory muscles and clear to auscultation bilaterally Auscultation: Negative for rales, rhonchi or wheezes Cardio regular rate, regular rhythm, S1 normal heart sound, S2 normal heart sound, no murmurs, no rub, no gallops and no clicks GI normal to inspection, nondistended, normoactive bowel sounds, soft to palpation and non-tender GI Narrative: Large protuberant abdomen Extremity no clubbing, cyanosis or edema Extremity Narrative: Pedal pulses are 2+, radial pulses are 2+ Neuro oriented x3 and moves all extremities Speech: speech normal Psych affect normal Psych Narrative: Eye contact is good, patient interacts appropriately Assessment & Plan Assessment/Plan (1) Cervical myelopathy: PLAN: Plan C3-7 disc degeneration with stenosis and progressive myelopathy -Postop day 0 ACDF from C3-C7 -Pain management per primary service -Continue scheduled bowel regimen DM-2 -Continue metformin -SSI per primary service order -Would recommend diabetic diet Anxiety/mood disorder -Continue home propranolol -Continue home Seroquel -Continue home sertraline -Continue home Wellbutrin Morbid obesity -Recommend weight loss -Complicates treatment, prognosis, outcomes DVT prophylaxis -Per primary service with recent surgery -Would recommend SCDs CODE STATUS -Full code Charges/Coding Visit Charges Inpatient E&M: 37246 [facility] L1
[2023-07-16] MEDS: 0.9% Saline Lock 10 ML Syringe IV (21:58)
[2023-07-16] MEDS: QUEtiapine 25 MG Tablet 50 MG PO (21:59)
[2023-07-16] MEDS: Propranolol 10 MG Tablet PO (21:59)
[2023-07-16] MEDS: Senna/Docusate Sodium 1 Tablet 2 TABLET PO (22:00)
[2023-07-17 00:02] VITALS: BP 134/63; PULSE 76; RESP 18; TEMP 36.4; O2SAT 96
[2023-07-17] MEDS: Lactated Ringers 1,000 ML 100 ML IV (00:18)
[2023-07-17] MEDS: dexAMETHasone 4 MG/ML Vial 2 MG IV ×2 (00:18→06:33)
[2023-07-17 03:04] VITALS: PULSE 56; O2SAT 91
[2023-07-17] MEDS: Cefazolin 3 GM in 0.9% Normal Saline (100mL Bag) 100 ML IV (03:45)
[2023-07-17 06:29] VITALS: BP 125/70; PULSE 55; RESP 18; TEMP 36.4; O2SAT 94
[2023-07-17] MEDS: Ketorolac 15 MG/ML Vial IV (06:32)
[2023-07-17] MEDS: Acetaminophen 500 MG Tablet 1000 MG PO ×2 (06:33→14:26)
[2023-07-17 07:23] LABS: Hematocrit 35.9 % (37-47); Hemoglobin 11.6 g/dL (12.0-15.0); Mean Corp Hgb Conc 32.3 g/dL (32-36); Mean Corpuscular Hgb 28.6 pg (27.0-32.0); Mean Corpuscular Volume 88.4 fL (81-99); Mean Platelet Vol. 9.2 fl (6.2-12.0); Platelet Count 209 K/mm3 (150-450); RBC Distribution Width CV 14.3 % (11.6-14.6); RBC Distribution Width SD 45.9 fl (35.1-43.9); Red Blood Count 4.06 M/mm3 (4.2-5.4)
--- NOTE | 2023-07-17 07:30 | PN.HOSP_ITS ---
Reason for Visit Reason for Visit: Diagnoses Disease of spinal cord, unspecified (07/16/23) Encounter for other preprocedural examination (07/16/23) Subjective Subjective Patient is a 58-year-old lady who underwent C3-7 anterior cervical discectomy and fusion with plate instrumentation on account of C3-7 disc degeneration with stenosis, progressive myelopathy Objective Data Objective Data Vital Signs: Vital Signs Temp Pulse Resp BP Pulse Ox O2 Del Method O2 Flow Rate 97.6 F L 55 L 18 125/70 H 94 Room Air 2 07/17/23 06:29 07/17/23 06:29 07/17/23 06:29 07/17/23 06:29 07/17/23 06:29 07/17/23 06:29 07/16/23 19:49 Oxygen Flow Rate (L/min) 2 Oxygen Delivery Method Room Air Weight: 127.4 kg Body Mass Index (BMI) 40.3 Intake & Output: Intake and Output for Last 24 Hours 07/15/23 07/16/23 07/17/23 23:59 23:59 23:59 Intake Total 2327 / 2927 1356 / 1356 Balance 2327 / 2927 1356 / 1356 Lab / Micro Data 07/17/23 06:10 07/17/23 06:10 Labs: Laboratory Results - last 24 hr 07/16/23 09:31: POC Glucose 139 H 07/16/23 12:36: POC Glucose 177 H 07/17/23 06:10: WBC 13.0 H, RBC 4.06 L, Hgb 11.6 L, Hct 35.9 L, MCV 88.4, MCH 28.6, MCHC 32.3, RDW Std Deviation 45.9 H, RDW Coeff of Franklyn 14.3, Plt Count 209, MPV 9.2 Micro: Microbiology 07/08/23 10:14 Swab (Method) Nasal Screen MRSA/MSSA - Final Radiography Diagnostic Testing: Radiology Impression Cervical Spine X-Ray 07/16/23 06:30 IMPRESSION: Intraoperative exam as described above. Electronically Signed: Stephan Clark MD at 11:36 EST , Physical Exam Narrative GENERAL: cooperative HEENT: Neck immobilized in the collar dressing remains dry and intact EYES; Anicteric, Normal Conjunctiva NECK; supple, normal thyroid, RESPIRATORY: Diminished to auscultation CARDIOVASCULAR: Regular S1 S2, GI: soft, normoactive bowel sounds, : No Renal angle tenderness; EXTREMITIES: No edema, no clubbing, MUSCULOSKELETAL: no muscle wasting NEURO: Awake; no lateralizing signs. SKIN: No Rash PSYCH; Flat affect Assessment & Plan Assessment/Plan (1) Cervical myelopathy: PLAN: Plan Patient is a 58-year-old lady who underwent C3-7 anterior cervical discectomy and fusion with plate instrumentation on account of C3-7 disc degeneration with stenosis, progressive myelopathy 1. C3-7 disc degeneration with stenosis and progressive myelopathy C3-7 anterior cervical discectomy and fusion with plate instrumentation 2. Diabetes mellitus type 2 ? Patient is on metformin did continue in addition to Accu-Cheks before meals and at bedtime with sliding scale coverage 3. Depression with anxiety - did continue patient psychotropic medications including Seroquel sertraline as well as Wellbutrin 4. Class II obesity with BMI of 40.3 ? Complicating care weight loss advised 5. Anemia - Secondary to chronic disorder monitoring H&H and transfuse if patient becomes symptomatic or hemoglobin falls below 7 6. Leukocytosis ? Possibly reactive we will continue monitoring 7. DVT prophylaxis ? Defer to primary service Time spent in the patient's overall evaluation,decision-making process, review of diagnostic data, adjustment of management, discussion with other providers, nursing nursing and ancillary staff involved in patient's care documentation,50 Minutes Charges/Coding Visit Charges Inpatient E&M: 49038 [facility] L3
--- NOTE | 2023-07-17 07:39 | PCM.PN.ORT ---
Subjective Subjective Postop day 1 status post C3 7 ACDF. Patient doing well. Pain well-controlled. Mild soreness in throat with swallowing. Was able to walk to the bathroom last night with some balance issues and use of walker for it. Objective Data Objective Data Vital Signs: Vital Signs Temp Pulse Resp BP Pulse Ox O2 Del Method O2 Flow Rate 97.6 F L 55 L 18 125/70 H 94 Room Air 2 07/17/23 06:29 07/17/23 06:29 07/17/23 06:29 07/17/23 06:29 07/17/23 06:29 07/17/23 06:29 07/16/23 19:49 Oxygen Flow Rate (L/min) 2 Oxygen Delivery Method Room Air Weight: 280 lb 13.903 oz Body Mass Index (BMI) 40.3 Intake & Output: Intake and Output for Last 24 Hours 07/15/23 07/16/23 07/17/23 23:59 23:59 23:59 Intake Total 2327 / 2927 1356 / 1356 Balance 2327 / 2927 1356 / 1356 Lab / Micro Data 07/17/23 06:10 07/17/23 06:10 Labs: Laboratory Results - last 24 hr 07/16/23 09:31: POC Glucose 139 H 07/16/23 12:36: POC Glucose 177 H 07/17/23 06:10: WBC 13.0 H, RBC 4.06 L, Hgb 11.6 L, Hct 35.9 L, MCV 88.4, MCH 28.6, MCHC 32.3, RDW Std Deviation 45.9 H, RDW Coeff of Franklyn 14.3, Plt Count 209, MPV 9.2 Micro: Microbiology 07/08/23 10:14 Swab (Method) Nasal Screen MRSA/MSSA - Final Radiography Diagnostic Testing: Radiology Impression Cervical Spine X-Ray 07/16/23 06:30 IMPRESSION: Intraoperative exam as described above. Electronically Signed: Stephan Clark MD at 11:36 EST , Physical Exam Narrative Dressing removed. Db drain removed. New dressing applied. Neurologic evaluation shows 5 x 5 power in all muscles normal sensations in all dermatomes are baseline right shoulder difficulty with range of motion and abduction. Jonathan's negative. Assessment & Plan Assessment/Plan (1) S/P cervical spinal fusion: PLAN: Plan Will get upright x-rays today. PT OT mobilization. Discharge likely today pending PT OT recommendations.
[2023-07-17 07:43] LABS: Anion Gap 3 (5-15); BUN 13 mg/dL (7-18); BUN/Creat Ratio 18.1 RATIO (10-20); Calcium,Total 9.1 mg/dL (8.5-10.1); Chloride 108 mmol/L (98-107); Creatinine, Serum 0.72 mg/dL (0.55-1.02); EST Glomerular Filtration Rate 88 mL/min (>60); Est Glom Filt Rate - Afr Amer 107 mL/min (>60); Estimated Creatinine Clearance 122.27 ml/min; Glucose 142 mg/dL (74-106); Potassium 4.1 mmol/L (3.5-5.1); Sodium Level 140 mmol/L (136-145)
[2023-07-17 07:44] VITALS: BP 155/62; PULSE 50; RESP 16; TEMP 36.6; O2SAT 93
[2023-07-17] MEDS: Ensure Surgery 237 ML LIQUID PO ×2 (07:55→12:09)
[2023-07-17] MEDS: metFORMIN HCl 500 MG Tablet PO (07:55)
--- NOTE | 2023-07-17 08:10 | RAD_ITS ---
INDICATION: s/p ACDF -- Please do upright AP lateral EXAMINATION/TECHNIQUE: X-RAY - XR Spine Cervical 2 or 3 Views COMPARISON: Prior study dated: 03/21/2023. FINDINGS: VERTEBRAE: Preserved vertebral body height. No fracture. No spondylolisthesis. Straightening of the cervical spine No significant facet arthropathy. DISCS: Anterior fusion of C3-C7 with anterior plate and screws. Disc implants at these levels are seen. NECK SOFT TISSUES: Mild prevertebral soft tissue swelling consistent with recent surgery. LUNG APICES: Clear. RAD/Cerv Spine 2 or 3 Views IMPRESSION: Status post anterior fusion of the cervical spine as described above.. Electronically Signed: Stephan Clark MD at 8:35 EST ,
[2023-07-17] MEDS: Propranolol 10 MG Tablet PO (09:21)
[2023-07-17] MEDS: Methocarbamol 500 MG Tablet 1000 MG PO ×2 (09:22→14:26)
[2023-07-17] MEDS: Senna/Docusate Sodium 1 Tablet 2 TABLET PO (09:22)
[2023-07-17] MEDS: Sertraline 100 MG Tablet 200 MG PO (09:22)
[2023-07-17] MEDS: Meloxicam 15 MG Tablet PO (09:22)
[2023-07-17] MEDS: buPROPion (XL) 300 MG TABLET.XL PO (09:22)
--- NOTE | 2023-07-17 09:51 | CASEMGMT ---
RASHEED RODRIGUEZ Assessment: Face to Face with pt for initial transition planning/care coordination assessment. RASHEED RODRIGUEZ introduced self and role at [facility], pt voices understanding and consents to assessment. Pt is A&O x4 and answers all questions appropriately at this time. Pt sitting up in chair with neck brace on in no distress with at bedside. Care providers, pharmacy, and demographics verified/updated. Admitting Dx: anterior cervical fusion C3-4 PCP:DELILAH Sierra Specialists:norma Burrell Pharmacy: [facility] Retail Insurance: [employer] Prescription Benefit: no LNOK: Yann Viera, ; Suzy Mcclure, dtr Living Arrangements: Pt lives in a single story home with a flight of steps to enter from the basement. She lives with her and a friend with who is mentally disabled but able to assist pt. Pt assists with bathing hard to reach areas, otherwise pt is I in ADL's. Pt prepares meals, and live in friend does the laundry. Pt denies concerns at home. Transportation: Pt hires drivers for transportation and pt has transportation home. DME:crutches; pt has arranged to borrow a walker from someone and denies need for rx for this. HHC/SNF: Pt denies hx of Pt states no concerns with going home at time of dc. Pt states no further concerns/needs. CM to follow. Advised pt to ask CM if any further question/concerns/needs arise, voices understanding. Pt Goal: Home Plan: Home, borrow walker
--- NOTE | 2023-07-17 12:39 | CASEMGMT ---
Social Work SW received referral from RN that pt is interested in Advance Directives. GLENN met with pt and spouse and explained HCPOA and living will. Pt requesting to complete documents. SW assisted pt in completing a living will and HCPOA naming her spouse Yann Viera. Copy placed on pt chart and original given to pt. JOSE CARLOS Stock
== END 2023-07-17 17:17 | disposition home or self-care (01) | DRG 472 ==
LOC: ACINP 12:47 → MS3 12:48
PROVIDERS: Admitting Provider Orthopaedic Surgery Orthopaedic Surgery of the Spine; PCP Physician Assistant; Referring Provider Orthopaedic Surgery Orthopaedic Surgery of the Spine; Visit Provider Internal Medicine
PROC: 0RG20A0 Fusion of 2 or more Cervical Vertebral Joints with Interbody Fusion Device, Anterior Approach, Anterior Column, Open Approach (ICD-10-PCS; CPT 22551; principal; 2023-07-16 07:00)
DX: M50.01 Cervical disc disorder with myelopathy, high cervical region (principal); Z68.41 Body mass index [BMI] 40.0-44.9, adult; E11.9 Type 2 diabetes mellitus without complications; E66.01 Morbid (severe) obesity due to excess calories; F32.A Depression, unspecified; M50.021 Cervical disc disorder at C4-C5 level with myelopathy; M50.022 Cervical disc disorder at C5-C6 level with myelopathy; M50.023 Cervical disc disorder at C6-C7 level with myelopathy; M48.02 Spinal stenosis, cervical region; F41.9 Anxiety disorder, unspecified; X58.XXXA Exposure to other specified factors, initial encounter; Z79.84 Long term (current) use of oral hypoglycemic drugs; Z79.899 Other long term (current) drug therapy
CPT/HCPCS: 36415; 72040; 72050; 76000; 80048; 82962; 83735; 85027; 86703; 86706; 86708; 86803; 86850; 86900; 86901; 87081; 94668; 97162; 99252; C1713; J7120; A4216; G0463; J2405; J3475

== ENCOUNTER → 2024-02-12 | Outpatient (CLI) | payer OTHER, SELFPAY ==
[2024-02-12 12:04] LABS: Absolute Neutrophil Count 4.1 X10^3/uL (2.0-7.7); Basophil# 0.07 X10^3/uL; Basophil% 0.9 % (0-1); Eosinophil# 0.36 X10^3/uL; Eosinophils% 4.9 % (0-5); Hematocrit 39.7 % (37-47); Hemoglobin 12.5 g/dL (12.0-15.0); Lymphocyte % 32.4 % (19-41); Mean Corp Hgb Conc 31.5 g/dL (32-36); Mean Corpuscular Hgb 28.2 pg (27.0-32.0); Mean Corpuscular Volume 89.4 fL (81-99); Mean Platelet Vol. 9.4 fl (6.2-12.0); Monocyte# 0.47 X10^3/uL; Monocyte% 6.4 % (0-10); NRBC Flagged by Analyzer 0 % (0-5); Neutrophil # 4.08 X10^3/uL (2.7-7.7); Neutrophil % 55.1 % (47-70); Platelet Count 241 K/mm3 (150-450); RBC Distribution Width CV 14.5 % (11.6-14.6); RBC Distribution Width SD 46.7 fl (35.1-43.9); Red Blood Count 4.44 M/mm3 (4.2-5.4); White Blood Count 7.4 K/mm3 (4.4-11.0)
[2024-02-12 12:27] LABS: ALB/GLOB Ratio 0.9 RATIO (0.9-2.4); AST(SGOT) 14 U/L (15-37); Alanine Aminotransfer ALT/SGPT 21 U/L (13-56); Albumin, Serum 3.8 g/dL (3.2-5.0); Alkaline Phosphatase 92 U/L (45-117); Anion Gap 4 (5-15); BUN 11 mg/dL (7-18); BUN/Creat Ratio 14.7 RATIO (10-20); Calcium,Total 10.3 mg/dL (8.5-10.1); Chloride 106 mmol/L (98-107); Cholesterol 168 mg/dL (200); Creatinine, Serum 0.75 mg/dL (0.55-1.02); EST Glomerular Filtration Rate 84 mL/min (>60); Est Glom Filt Rate - Afr Amer 102 mL/min (>60); Globulin 4.1 g/dL (2.2-4.2); Glucose 113 mg/dL (74-106); High Density Lipoprotein 58 mg/dL; Potassium 3.9 mmol/L (3.5-5.1); Protein, Total 7.9 g/dL (6.4-8.2); Sodium Level 138 mmol/L (136-145); Triglycerides 93 mg/dL; Very Low Density Lipoprotein 19 mg/dL (5-40)
== END | disposition home or self-care (01) ==
LOC: BIMLAB 09:07
PROVIDERS: PCP Physician Assistant; Referring Provider Physician Assistant; Visit Provider Physician Assistant
DX: E11.9 Type 2 diabetes mellitus without complications (principal)
CPT/HCPCS: 36415; 80053; 80061; 85025

== ENCOUNTER 2024-04-05 10:27 | Inpatient (IN) | payer OTHER, SELFPAY ==
[2024-04-05] VITALS (9 sets, daily range): BP systolic 127–157; BP diastolic 56–69; PULSE 50–78; RESP 13–18; TEMP 36.2–36.8; O2SAT 92–98; BMI 39.6; BMI 43.1
[2024-04-05] MEDS: Meclizine HCl 25 MG Tablet PO ×2 (11:32→18:03)
[2024-04-05] MEDS: LORazepam 2 MG/ML Syringe 1 MG IV (11:33)
[2024-04-05 11:44] LABS: Absolute Lymphocyte Count 1.77 X10^3/uL (0.83-4.51); Absolute Neutrophil Count 4.5 X10^3/uL (2.0-7.7); Basophil# 0.04 X10^3/uL; Basophil% 0.6 % (0-1); Eosinophil# 0.19 X10^3/uL; Eosinophils% 2.8 % (0-5); Hematocrit 37.5 % (37-47); Hemoglobin 12.2 g/dL (12.0-15.0); Lymphocyte # 1.77 X10^3/ul (0.83-4.51); Lymphocyte % 26.1 % (19-41); Mean Corp Hgb Conc 32.5 g/dL (32-36); Mean Corpuscular Hgb 29.1 pg (27.0-32.0); Mean Corpuscular Volume 89.5 fL (81-99); Mean Platelet Vol. 8.6 fl (6.2-12.0); Monocyte# 0.32 X10^3/uL; Monocyte% 4.7 % (0-10); NRBC Flagged by Analyzer 0 % (0-5); Neutrophil # 4.45 X10^3/uL (2.7-7.7); Neutrophil % 65.5 % (47-70); Platelet Count 195 K/mm3 (150-450); RBC Distribution Width CV 13.9 % (11.6-14.6); RBC Distribution Width SD 45.1 fl (35.1-43.9); Red Blood Count 4.19 M/mm3 (4.2-5.4); White Blood Count 6.8 K/mm3 (4.4-11.0)
[2024-04-05 12:03] LABS: ALB/GLOB Ratio 0.9 RATIO (0.9-2.4); AST(SGOT) 17 U/L (15-37); Alanine Aminotransfer ALT/SGPT 18 U/L (13-56); Albumin, Serum 3.4 g/dL (3.2-5.0); Alkaline Phosphatase 91 U/L (45-117); Anion Gap 7 (5-15); BUN 13 mg/dL (7-18); BUN/Creat Ratio 19.9 RATIO (10-20); Calcium,Total 9.2 mg/dL (8.5-10.1); Chloride 108 mmol/L (98-107); Creatinine, Serum 0.65 mg/dL (0.55-1.02); EST Glomerular Filtration Rate 99 mL/min (>60); Est Glom Filt Rate - Afr Amer 119 mL/min (>60); Estimated Creatinine Clearance 134.14 ml/min; Globulin 3.6 g/dL (2.2-4.2); Glucose 132 mg/dL (74-106); Potassium 3.8 mmol/L (3.5-5.1); Sodium Level 141 mmol/L (136-145); Troponin-I HS < 3 pg/mL (3.0-54.0)
[2024-04-05] MEDS: diazePAM 5 MG Tablet PO (14:35)
[2024-04-05 16:37] LABS: Hemoglobin A1c 6.3 % (3.8-5.6)
[2024-04-05] MEDS: 0.9% Normal Saline (1000mL) 1,000 ML 100 ML IV (16:59)
[2024-04-05] MEDS: proCHLORPERazine 10 MG/2 ML Vial 5 MG IV (16:59)
[2024-04-05] MEDS: Aspirin 325 MG Tablet PO (16:59)
[2024-04-05 17:19] LABS: Bedside Glucose 93 mg/dL (74-106)
[2024-04-05] MEDS: Atorvastatin Calcium 80 MG Tablet PO (20:50)
[2024-04-05] MEDS: QUEtiapine 25 MG Tablet 50 MG PO (20:50)
[2024-04-05 21:01] LABS: Bedside Glucose 117 mg/dL (74-106)
[2024-04-06] VITALS (9 sets, daily range): BP systolic 129–165; BP diastolic 55–85; PULSE 55–72; RESP 16; TEMP 36.4–36.8; O2SAT 87–95; BMI 43.1
[2024-04-06] MEDS: 0.9% Normal Saline (1000mL) 1,000 ML 100 ML IV (02:59)
[2024-04-06 05:31] LABS: Absolute Lymphocyte Count 2.64 X10^3/uL (0.83-4.51); Basophil# 0.05 X10^3/uL; Basophil% 0.6 % (0-1); Eosinophil# 0.24 X10^3/uL; Eosinophils% 2.8 % (0-5); Hematocrit 35.7 % (37-47); Hemoglobin 11.6 g/dL (12.0-15.0); Lymphocyte # 2.64 X10^3/ul (0.83-4.51); Lymphocyte % 31.2 % (19-41); Mean Corp Hgb Conc 32.5 g/dL (32-36); Mean Corpuscular Hgb 29.1 pg (27.0-32.0); Mean Corpuscular Volume 89.7 fL (81-99); Mean Platelet Vol. 8.6 fl (6.2-12.0); Monocyte# 0.54 X10^3/uL; Monocyte% 6.4 % (0-10); NRBC Flagged by Analyzer 0 % (0-5); Neutrophil # 4.96 X10^3/uL (2.7-7.7); Neutrophil % 58.8 % (47-70); Platelet Count 206 K/mm3 (150-450); RBC Distribution Width CV 13.9 % (11.6-14.6); RBC Distribution Width SD 45.4 fl (35.1-43.9); Red Blood Count 3.98 M/mm3 (4.2-5.4); White Blood Count 8.5 K/mm3 (4.4-11.0)
[2024-04-06 05:58] LABS: ALB/GLOB Ratio 0.9 RATIO (0.9-2.4); AST(SGOT) 12 U/L (15-37); Alanine Aminotransfer ALT/SGPT 17 U/L (13-56); Alkaline Phosphatase 74 U/L (45-117); Anion Gap 4 (5-15); BUN 9 mg/dL (7-18); BUN/Creat Ratio 14.1 RATIO (10-20); Calcium,Total 8.8 mg/dL (8.5-10.1); Chloride 110 mmol/L (98-107); Cholesterol 134 mg/dL (200); Creatinine, Serum 0.64 mg/dL (0.55-1.02); EST Glomerular Filtration Rate 101 mL/min (>60); Est Glom Filt Rate - Afr Amer 122 mL/min (>60); Estimated Creatinine Clearance 125.66 ml/min; Globulin 3.4 g/dL (2.2-4.2); Glucose 105 mg/dL (74-106); High Density Lipoprotein 52 mg/dL; Phosphorus 2.7 mg/dL (2.5-4.9); Potassium 3.4 mmol/L (3.5-5.1); Protein, Total 6.4 g/dL (6.4-8.2); Sodium Level 142 mmol/L (136-145); Triglycerides 86 mg/dL; Very Low Density Lipoprotein 17 mg/dL (5-40)
[2024-04-06 06:47] LABS: Bedside Glucose 110 mg/dL (74-106)
[2024-04-06] MEDS: Aspirin 81 MG TAB.CHEW PO (08:09)
[2024-04-06] MEDS: buPROPion (XL) 300 MG TABLET.XL PO (08:09)
[2024-04-06] MEDS: DULoxetine Hcl 60 MG Capsule PO (08:09)
[2024-04-06] MEDS: Enoxaparin 40 MG/0.4 ML Syringe SC (08:09)
[2024-04-06] MEDS: Clopidogrel Bisulfate 75 MG Tablet PO (08:09)
[2024-04-06] MEDS: 0.9% Saline Lock 10 ML Syringe IV (08:54)
[2024-04-06] MEDS: Ondansetron 4 MG/2 ML Vial IV (08:54)
[2024-04-06] MEDS: Meclizine HCl 25 MG Tablet PO (10:13)
[2024-04-06 12:44] LABS: Mucous, Urine 0 SEEN /hpf (<or=2+); Red Blood Cells-Urine 0 SEEN /hpf (0-5); Squamous Epithelial Cells - UA 0 SEEN /hpf (5-10)
[2024-04-06 12:48] LABS: Bedside Glucose 116 mg/dL (74-106)
[2024-04-06 12:53] LABS: Color, Urine Straw (Yellow); Glucose, Dipstick Normal (Normal); Ketone-Dipstick Negative (Negative); Leukocyte Esterase-Dipstick 25 /ul (Negative); Nitrite-Dipstick Negative (Negative); Occult Blood-Urine Negative /ul (Negative); Protein-Dipstick Negative (Negative); Urine Bilirubin Dipstick Negative (Negative); Urine Clarity Clear (Clear); Urine Urobilinogen Normal (Normal)
[2024-04-06 12:59] LABS: White Blood Cells 0-5 SEEN /hpf (0-5)
[2024-04-06 13:00] LABS: Bacteria 2+ /hpf (None Seen)
[2024-04-06] MEDS: Acetaminophen 325 MG Tablet 650 MG PO (13:32)
[2024-04-06] MEDS: MethylPREDNISolone 1,000 MG in 0.9% Normal Saline (100mL Bag) 100 ML 100 MG IV (16:27)
[2024-04-06 17:30] LABS: Bedside Glucose 115 mg/dL (74-106)
[2024-04-06] MEDS: QUEtiapine 25 MG Tablet 50 MG PO (20:30)
[2024-04-06] MEDS: diazePAM 2 MG Tablet 1 MG PO (20:30)
[2024-04-06 20:59] LABS: Bedside Glucose 188 mg/dL (74-106)
[2024-04-07 04:59] VITALS: PULSE 57
[2024-04-07 05:29] VITALS: BP 140/62; PULSE 57; RESP 18; TEMP 36.6; O2SAT 93
[2024-04-07] MEDS: diazePAM 2 MG Tablet 1 MG PO (05:31)
[2024-04-07] MEDS: Acetaminophen 325 MG Tablet 650 MG PO ×2 (05:33→20:59)
[2024-04-07] MEDS: Insulin Lispro 100 UNIT/ML INSULN.PEN SC ×4 (06:36→20:59)
[2024-04-07 06:58] LABS: Bedside Glucose 210 mg/dL (74-106)
[2024-04-07 07:01] LABS: Absolute Lymphocyte Count 0.82 X10^3/uL (0.83-4.51); Absolute Neutrophil Count 7.7 X10^3/uL (2.0-7.7); Basophil# 0.01 X10^3/uL; Basophil% 0.1 % (0-1); Hematocrit 39.2 % (37-47); Hemoglobin 13.1 g/dL (12.0-15.0); Lymphocyte # 0.82 X10^3/ul (0.83-4.51); Lymphocyte % 9.5 % (19-41); Mean Corp Hgb Conc 33.4 g/dL (32-36); Mean Corpuscular Hgb 29.1 pg (27.0-32.0); Mean Corpuscular Volume 87.1 fL (81-99); Mean Platelet Vol. 8.9 fl (6.2-12.0); Monocyte# 0.04 X10^3/uL; Monocyte% 0.5 % (0-10); NRBC Flagged by Analyzer 0 % (0-5); Neutrophil # 7.71 X10^3/uL (2.7-7.7); Platelet Count 213 K/mm3 (150-450); RBC Distribution Width CV 13.1 % (11.6-14.6); RBC Distribution Width SD 41.9 fl (35.1-43.9); White Blood Count 8.7 K/mm3 (4.4-11.0)
[2024-04-07 07:29] LABS: Anion Gap 5 (5-15); BUN 9 mg/dL (7-18); BUN/Creat Ratio 13.6 RATIO (10-20); Calcium,Total 9.5 mg/dL (8.5-10.1); Chloride 107 mmol/L (98-107); Creatinine, Serum 0.66 mg/dL (0.55-1.02); EST Glomerular Filtration Rate 97 mL/min (>60); Est Glom Filt Rate - Afr Amer 117 mL/min (>60); Estimated Creatinine Clearance 121.85 ml/min; Glucose 215 mg/dL (74-106); Potassium 3.4 mmol/L (3.5-5.1); Sodium Level 139 mmol/L (136-145)
[2024-04-07 07:53] VITALS: BP 158/64; PULSE 55; RESP 16; TEMP 35.3; O2SAT 95
[2024-04-07] MEDS: buPROPion (XL) 300 MG TABLET.XL PO (08:03)
[2024-04-07] MEDS: DULoxetine Hcl 60 MG Capsule PO (08:03)
[2024-04-07] MEDS: Enoxaparin 40 MG/0.4 ML Syringe SC (08:03)
[2024-04-07] MEDS: MethylPREDNISolone 1,000 MG in 0.9% Normal Saline (100mL Bag) 100 ML 100 MG IV (09:49)
[2024-04-07] MEDS: Meclizine HCl 25 MG Tablet PO (09:58)
[2024-04-07] MEDS: Ondansetron 4 MG/2 ML Vial IV (11:22)
[2024-04-07 12:18] LABS: Bedside Glucose 190 mg/dL (74-106)
[2024-04-07 14:00] VITALS: BP 143/61; PULSE 56; RESP 16; TEMP 36; O2SAT 96
[2024-04-07 17:00] VITALS: BMI 43.1
[2024-04-07 17:10] LABS: Bedside Glucose 186 mg/dL (74-106)
[2024-04-07] MEDS: Glucerna Shake 120 ML LIQUID PO (19:00)
[2024-04-07 20:50] VITALS: BP 150/61; PULSE 62; RESP 18; TEMP 36.7; O2SAT 93
[2024-04-07] MEDS: QUEtiapine 25 MG Tablet 50 MG PO (20:59)
[2024-04-07 21:24] LABS: Bedside Glucose 206 mg/dL (74-106)
[2024-04-07 22:51] VITALS: BMI 43.1
[2024-04-08 03:00] VITALS: BP 130/54; PULSE 62; RESP 16; TEMP 36.4; O2SAT 92
[2024-04-08] MEDS: Insulin Lispro 100 UNIT/ML INSULN.PEN SC ×3 (06:17→17:05)
[2024-04-08 06:38] LABS: Bedside Glucose 170 mg/dL (74-106)
[2024-04-08 06:44] LABS: Absolute Lymphocyte Count 1.12 X10^3/uL (0.83-4.51); Absolute Neutrophil Count 14.9 X10^3/uL (2.0-7.7); Basophil# 0.02 X10^3/uL; Basophil% 0.1 % (0-1); Hematocrit 37.5 % (37-47); Hemoglobin 12.7 g/dL (12.0-15.0); Lymphocyte # 1.12 X10^3/ul (0.83-4.51); Lymphocyte % 6.7 % (19-41); Mean Corp Hgb Conc 33.9 g/dL (32-36); Mean Corpuscular Hgb 29.6 pg (27.0-32.0); Mean Corpuscular Volume 87.4 fL (81-99); Mean Platelet Vol. 9.1 fl (6.2-12.0); Monocyte# 0.51 X10^3/uL; Monocyte% 3.1 % (0-10); NRBC Flagged by Analyzer 0 % (0-5); Neutrophil # 14.86 X10^3/uL (2.7-7.7); Neutrophil % 89.4 % (47-70); Platelet Count 227 K/mm3 (150-450); RBC Distribution Width CV 13.9 % (11.6-14.6); RBC Distribution Width SD 43.8 fl (35.1-43.9); Red Blood Count 4.29 M/mm3 (4.2-5.4); White Blood Count 16.6 K/mm3 (4.4-11.0)
[2024-04-08 07:15] LABS: Anion Gap 3 (5-15); BUN 13 mg/dL (7-18); BUN/Creat Ratio 19.4 RATIO (10-20); Calcium,Total 9.6 mg/dL (8.5-10.1); Chloride 109 mmol/L (98-107); Creatinine, Serum 0.67 mg/dL (0.55-1.02); EST Glomerular Filtration Rate 96 mL/min (>60); Est Glom Filt Rate - Afr Amer 116 mL/min (>60); Estimated Creatinine Clearance 120.03 ml/min; Glucose 172 mg/dL (74-106); Potassium 3.7 mmol/L (3.5-5.1); Sodium Level 140 mmol/L (136-145)
[2024-04-08 07:34] VITALS: O2SAT 92
[2024-04-08 08:46] VITALS: BP 143/56; PULSE 60; RESP 16; TEMP 36.5; O2SAT 96
[2024-04-08] MEDS: Enoxaparin 40 MG/0.4 ML Syringe SC (09:14)
[2024-04-08] MEDS: DULoxetine Hcl 60 MG Capsule PO (09:14)
[2024-04-08] MEDS: buPROPion (XL) 300 MG TABLET.XL PO (09:14)
[2024-04-08] MEDS: MethylPREDNISolone 1,000 MG in 0.9% Normal Saline (100mL Bag) 100 ML 100 MG IV (09:15)
[2024-04-08] MEDS: diazePAM 2 MG Tablet 1 MG PO (10:17)
[2024-04-08 11:59] LABS: Bedside Glucose 186 mg/dL (74-106)
[2024-04-08] MEDS: Meclizine HCl 25 MG Tablet PO (14:40)
[2024-04-08 17:00] VITALS: BMI 43.1
[2024-04-08 17:27] LABS: Bedside Glucose 176 mg/dL (74-106)
== END 2024-04-08 17:29 | disposition home or self-care (01) | DRG 149 ==
LOC: ED 15:47 → PCU 15:57
PROVIDERS: Admitting Provider Internal Medicine; Emergency Provider Emergency Medicine; PCP Physician Assistant; Visit Provider Family Medicine
DX: H81.21 Vestibular neuronitis, right ear (principal); E11.65 Type 2 diabetes mellitus with hyperglycemia; Z66 Do not resuscitate; F32.A Depression, unspecified; E66.9 Obesity, unspecified; F41.9 Anxiety disorder, unspecified; R00.1 Bradycardia, unspecified; M54.50 Low back pain, unspecified; R03.0 Elevated blood-pressure reading, without diagnosis of hypertension; G89.29 Other chronic pain; Z98.1 Arthrodesis status; Z87.39 Personal history of other diseases of the musculoskeletal system and connective tissue; Z86.19 Personal history of other infectious and parasitic diseases; Z79.84 Long term (current) use of oral hypoglycemic drugs; Z90.49 Acquired absence of other specified parts of digestive tract; Z68.38 Body mass index [BMI] 38.0-38.9, adult; Z79.899 Other long term (current) drug therapy
CPT/HCPCS: 36415; 70450; 70496; 70553; 80048; 80053; 80061; 81001; 82962; 83036; 83735; 84100; 84443; 84484; 85025; 93005; 93306; 93880; 94762; 97110; 97163; 97530; 97802; 99285; A9575; J7030; Q9957; Q9967; A4216; C8929; J2405; J2919

== ENCOUNTER → 2024-11-18 | Outpatient (CLI) | payer OTHER, SELFPAY ==
[2024-11-18 15:25] LABS: Hematocrit 39.7 % (37-47); Hemoglobin 12.6 g/dL (12.0-15.0); Immature Granulocytes Count 0.030 X10^3/uL (0.0-0.0); Mean Corp Hgb Conc 31.7 g/dL (32-36); Mean Corpuscular Volume 92.3 fL (81-99); Mean Platelet Vol. 9.6 fl (6.2-12.0); NRBC Flagged by Analyzer 0 % (0-5); Platelet Count 248 K/mm3 (150-450); RBC Distribution Width CV 14.3 % (11.6-14.6); RBC Distribution Width SD 48.1 fl (35.1-43.9); Red Blood Count 4.30 M/mm3 (4.2-5.4); White Blood Count 7.3 K/mm3 (4.4-11.0)
[2024-11-18 15:53] LABS: PTHIN 82 pg/mL (11-61)
[2024-11-18 16:04] LABS: AST(SGOT) 17 U/L (<=31); Alanine Aminotransfer ALT/SGPT 18 U/L (<=34); Albumin, Serum 4.1 g/dL (3.4-4.8); Alkaline Phosphatase 90 U/L (35-104); Anion Gap 11 (5-15); BUN 9 mg/dL (4-19); BUN/Creat Ratio 11.0 RATIO (10-20); Calcium,Total 10.2 mg/dL (7.6-11.0); Carbon Dioxide 26.2 mmol/L (21.0-32.0); Chloride 102 mmol/L (98-108); Cholesterol 152 mg/dL (<=200); Globulin 3.0 g/dL (2.2-4.2); Glucose 105 mg/dL (70-99); Low Density Lipoprotein Calc. 80 mg/dL; Potassium 4.4 mmol/L (3.3-5.1); Triglycerides 83 mg/dL; Very Low Density Lipoprotein 17 mg/dL (5-40); cholesterol:hdl ratio screen 2.72
== END | disposition home or self-care (01) ==
LOC: BIMLAB 11:19
PROVIDERS: PCP Physician Assistant; Referring Provider Physician Assistant; Visit Provider Physician Assistant
DX: Z00.00 Encounter for general adult medical examination without abnormal findings (principal); E66.01 Morbid (severe) obesity due to excess calories; Z68.41 Body mass index [BMI] 40.0-44.9, adult; E83.52 Hypercalcemia; R73.03 Prediabetes
CPT/HCPCS: 36415; 80053; 80061; 83970; 84443; 85025

== ENCOUNTER → 2024-12-07 | Outpatient (CLI) | payer OTHER, SELFPAY ==
--- NOTE | 2024-12-07 09:22 | NM_ITS ---
PROCEDURE: PARATHYROID SCAN REASON FOR EXAM: ELEVATED CALCIUM AND PTH TECHNIQUE: PARATHYROID SCAN imaging performed following intravenous technetium-99m sestamibi administration. Anterior imaging of the neck through 2 hours. RADIOPHARMACEUTICAL: Technetium 99 M sestamibi DOSE 26.7mCi intravenous. COMPARISON: None. FINDINGS: On immediate imaging, normal and symmetric thyroid activity is seen. Uniform definition on delayed imaging is seen, without focal area of significant persistent uptake noted. NM/Parathyroid Scan IMPRESSION: Negative nuclear medicine parathyroid scan. Reading Location: [place] [id number]
== END | disposition home or self-care (01) ==
LOC: NM 09:16
PROVIDERS: PCP Physician Assistant; Referring Provider Physician Assistant; Visit Provider Physician Assistant
DX: E83.52 Hypercalcemia (principal); R79.89 Other specified abnormal findings of blood chemistry
CPT/HCPCS: 78070; A9500